=== PATIENT | male | born 2000 | race Caucasian/White ===

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

== ENCOUNTER 2019-01-26 19:57 | Emergency (ER) | payer OTHER ==
[~2019-01-26] VITALS: Ht 177.8 cm; Wt 110.0 kg
[~2019-01-26 19:57] MED LIST changes: +ACET500C5 PO; +AMOX500C2 PO; +AZIT250T PO; -AZIT250T94 PO; +BENZ-6 PO; +BENZ1LOZ52 MM; +IBUP-1542 PO; +IBUP-1561 PO; +LIDO20SO19 MM; +MECL12.574 PO; +PSEU30SY3 PO; +SODI75SP NASAL
[2019-01-26 20:02] VITALS: BP 130/63; PULSE 87; RESP 18; Ht 177.8 cm; Wt 110.0 kg
[2019-01-26] MEDS ORDERED: MECLIZINE 12.5 MG TAB PO ONE (21:30)
--- NOTE | 2019-01-26 21:37 | ERD ---
ER Documentation Chief Complaint Chief Complaint DIZZINESS X WEDNESDAY. HPI 18-year-old male presented to ED for dizziness since Wednesday. Patient states symptoms began when he got up on the bed he stated he felt like the room was spinning he rated the initial episode of 10 out of 10 and he states that the symptoms have been consistent since Wednesday but they have mellowed out a little bit. Patient states he currently is experiencing about a 7 out of 10 with dizziness. Patient denies any past medical history states he has not take any medication for this and does not take any prescription medication. Patient denies any allergies to medications states this is never happened to him before. Patient denies any trauma. ROS All systems reviewed and are negative except as per history of present illness. Medications Home Meds Active Scripts Ibuprofen* (Motrin*) 400 Mg Tab, 400 MG PO Q6, #30 TAB Prov:EMILIE JENKINS PA-C 01/26/19 Pseudoephedrine Hcl (NASAL DECONGESTANT) 30 Mg/5 Ml Liquid, 30 MG PO ONCE for 7 Days Prov:EMILIE JENKINS PA-C 01/26/19 Sodium Chloride/Sod Bicarb (Nasa Mist Saline [place]) 75 Ml [place], 1 SPRAY NASAL DAILY, #1 BOTTLE Prov:EMILIE JENKINS PA-C 01/26/19 Meclizine Hcl* (Antivert*) 12.5 Mg Tab, 12.5 MG PO Q6H PRN for DIZZINESS, #20 TAB Prov:EMILIE JENKINS PA-C 01/26/19 Benzocaine/Menthol* (Cepacol* Sore Throat Lozenges) 1 Each Lozenge, 1 EACH MM q2h PRN for SORE THROAT, #20 LOZENGE Prov:DANIEL GALARZA PA-C 08/24/17 Benzonatate* (Tessalon Perle*) 100 Mg Capsule, 100 MG PO Q8H PRN for COUGH, #20 CAP Prov:DANIEL GALARZA PA-C 08/24/17 Cetirizine Hcl* (Zyrtec*) 10 Mg Capsule, 10 MG PO DAILY, #10 TAB.CHEW Prov:DANIEL GALARZA PA-C 08/24/17 Acetaminophen* (Tylophen*) 500 Mg Capsule, 2 CAP PO Q8H PRN for PAIN AND OR ELEVATED TEMP, #20 CAP Prov:DANIEL GALARZA PA-C 08/24/17 Ibuprofen* (Motrin*) 600 Mg Tab, 600 MG PO Q6, #30 TAB Prov:DANIEL GALARZA PA-C 08/24/17 Amoxicillin* (Amoxicillin*) 500 Mg Cap, 500 MG PO TID for 7 Days, CAP Prov:HERMES RITCHIE PA-C 02/01/17 Lidocaine (Lidocaine Viscous) 100 Ml Soln, 10 ML MM BID, #100 Prov:HERMES RITCHIE PA-C 02/01/17 Cetirizine Hcl* (Zyrtec*) 10 Mg Capsule, 10 MG PO DAILY, #30 TAB Prov:MARILIA SAMANIEGO MD 06/14/16 Prednisone* (Prednisone*) 20 Mg Tab, 40 MG PO DAILY for 3 Days, TAB Prov:SHANKAR INIGUEZ 06/10/15 Azithromycin* (Zithromax*) 250 Mg Tablet, 250 MG PO .ZPACK DIRECTED, #6 TAB TAKE 500 MG (2 TABS) THE FIRST DAY THEN 250 MG (1 TAB) DAYS 2-5 Prov:SHANKAR INIGUEZ 06/10/15 Allergies Allergies: Coded Allergies: No Known Allergy (Unverified , 09/10/14) PMhx/Soc Medical and Surgical Hx: pt denies Surgical Hx Hx Respiratory Disorders: Yes (childhood asthma: now resolved) Hx Miscellaneous Medical Probl: Yes (allergies) Hx Alcohol Use: No Hx Substance Use: No Hx Tobacco Use: No Smoking Status: Never smoker FmHx Family History: No diabetes, No coronary disease, No other Physical Exam Vitals Vital Signs Date Temp Pulse Resp B/P (MAP) Pulse Ox O2 O2 Flow FiO2 Time Delivery Rate 01/26/19 98.1 87 18 130/63 98 20:02 (85) Physical Exam GENERAL: The patient is well-appearing, well-nourished, in no acute distress HEENT: Horizontal nystagmus, pain to palpation to the anterior sinuses. Tympanic membranes are intact nonerythematous no pain on examination the throat is not erythematous tonsils grade 2 with no exudates present NECK: C-spine is soft and supple. There is no meningismus. There is no cervi josue lymphadenopathy. CHEST: Clear to auscultation bilaterally. There are no rales, wheezes or rhonchi. HEART: Regular rate and rhythm. No murmurs, clicks, rubs or gallops. ABDOMEN:Soft, nontender and nondistended. Good bowel sounds. No rebound or gua rding. No gross peritonitis. No gross organomegaly or masses. No Martinez sign or McBurney point tenderness. Results 24 hrs Current Medications Medications Dose Sig/Sam Start Time Status Last (Trade) Ordered Route PRN Stop Time Admin Dose Reason Admin Meclizine 25 mg ONCE ONCE 01/26/19 DC 01/26/19 HCl PO 21:30 21:30 (Antivert) 01/26/19 21:31 Procedures/MDM ED course: The patient was stable throughout the ED course. The patient and/or family informed of laboratory and diagnostic imaging results throughout the ED course. Medications given in ER: Meclizine Patient tolerated medication well with no adverse reactions. Patient reported improvement in pain. Medical decision makin-year-old male presented to the ED for dizziness since Wednesday. Physical exam was unremarkable except for pain to palpation to the anterior sinuses. Patient had horizontal nystagmus on examination. Patient was given meclizine in the ED and reported improvement in symptoms prior to discharge. At this time the patient's symptoms are most consistent with acute sinusitis and BPV. The patient denies any head injuries and has no next thickness. At this time I have low suspicion for brain lesion, meningitis, acute otitis media, acute otitis externa. Advised patient needs follow-up with primary care provider in 1 to 2 days regarding this visit. I advised the patient symptoms worsen return to ER immediately. Patient is agreement treatment plan all questions were answered upon discharge Prescription for home: Meclizine Nasal spray Motrin I have discussed with the patient proper use and common side effects to expert with the medication . I advised the patient/family to speak with the pharma cist dispensing the medication to be advised of any potential drug interactions with other medication or supplements they may be taking. Discharge: At this time, patient is stable for discharge and outpatient management. I have instructed the patient to follow-up with his\her primary care physician in 1 to 2 days. I have discussed with the patient the possibility of needing to see a specialist for further work-up and imaging studies if symptoms persist. I have instructed the patient to promptly return to the ER for any new or worsening symptoms including increased pain, fever, nausea, vomiting, weakness or LOC. The patient and\or family expressed understanding of and agreement with this plan. All questions were answered. Home care instructions were provided. Disclaimer: Inadvertent spelling and grammatical errors are likely due to EHR\dictation software use and do not reflect on the overall quality of patient care. Also, please note that the electronic time recorded on the note does not necessarily reflect the actual time of the patient encounter. Departure Diagnosis: Primary Impression: BPV (benign positional vertigo) Laterality: unspecified laterality Qualified Codes: H81.10 - Benign paroxysmal vertigo, unspecified ear Additional Impression: Acute sinusitis Sinusitis location: unspecified location Recurrence: non-recurrent Qualified Codes: J01.90 - Acute sinusitis, unspecified Condition: Stable Patient Instructions: Acute Sinusitis, Benign Positional Vertigo Referrals: [facility] YOU HAVE RECEIVED A MEDICAL SCREENING EXAM AND THE RESULTS INDICATE THAT YOU DO NOT HAVE A CONDITION THAT REQUIRES URGENT TREATMENT IN THE EMERGENCY DEPARTMENT. FURTHER EVALUATION AND TREATMENT OF YOUR CONDITION CAN WAIT UNTIL YOU ARE SEEN IN YOUR DOCTORS OFFICE WITHIN THE NEXT 1-2 DAYS. IT IS YOUR RESPONSIBILITY TO MAKE AN APPOINTMENT FOR FOLOW-UP CARE. IF YOU HAVE A PRIMARY DOCTOR --you should call your primary doctor and schedule an appointment IF YOU DO NOT HAVE A PRIMARY DOCTOR YOU CAN CALL OUR PHYSICIAN REFERRAL HOTLINE AT IF YOU CAN NOT AFFORD TO SEE A PHYSICIAN YOU CAN CHOSE FROM THE FOLLOWING [facility] [address] [facility]. [facility] [address] [facility]. [facility] [address] [facility]. [facility] [address] [facility]. [facility] [address] [facility]. [facility]. [address] [facility]. [facility] YOU HAVE RECEIVED A MEDICAL SCREENING EXAM AND THE RESULTS INDICATE THAT YOU DO NOT HAVE A CONDITION THAT REQUIRES URGENT TREATMENT IN THE EMERGENCY DEPARTMENT. FURTHER EVALUATION AND TREATMENT OF YOUR CONDITION CAN WAIT UNTIL YOU ARE SEEN IN YOUR DOCTORS OFFICE WITHIN THE NEXT 1-2 DAYS. IT IS YOUR RESPONSIBILITY TO MAKE AN APPOINTMENT FOR FOLOW-UP CARE. IF YOU HAVE A PRIMARY DOCTOR --you should call your primary doctor and schedule and appointment IF YOU DO NOT HAVE A PRIMARY DOCTOR YOU CAN CALL OUR PHYSICIAN REFERRAL HOTLINE AT . IF YOU CAN NOT AFFORD TO SEE A PHYSICIAN YOU CAN CHOSE FROM THE FOLLOWING [facility] INSTITUTIONS: [facility] [address] [place] [address] [facility] [address] [place] [address] [facility] + [facility] [address] [place] [address] Additional Instructions: Call your primary care doctor TOMORROW for an appointment during the next 1-2 days.See the doctor sooner or return here if your condition worsens before your appointment time. EMILIE JENKINS PA-C Jan 26, 2019 21:37
== END 2019-01-26 21:49 | disposition home or self-care (01) ==
LOC: FTE 19:57
DX: H81.10 Benign paroxysmal vertigo, unspecified ear (principal); J01.90 Acute sinusitis, unspecified
CPT/HCPCS: 99283